=== PATIENT | male | born 1965 | race Caucasian/White ===

== ENCOUNTER 2019-01-11 07:42 | Inpatient (IN) | payer OTHER ==
[~2019-01-11] VITALS: Ht 180.3 cm; Wt 121.2 kg
[2019-01-11 08:40] VITALS: BP 132/96
[2019-01-11] MEDS ORDERED: HEPARIN for IV BOLUS 10,000 UNIT/10 ML VIAL. IV PRN (10:00)
[2019-01-11] MEDS: HEPARIN 25,000UTS/500ML PREMIX 500 ML IV PRN (10:41)
[2019-01-11 11:00] VITALS: BP 123/63
[2019-01-11 15:00] VITALS: BP 114/71
[2019-01-11] MEDS ORDERED: FLU VAX QS 2019-20 (36MOS+)/PF 0.5 ML SYRINGE. VAX IM ONE (18:00)
[2019-01-11] MEDS ORDERED: DEXTROSE 50% 25 GM / 50ML DISP.SYRIN. IV PRN (19:15)
[2019-01-11 19:45] VITALS: BP 144/86
[2019-01-11] MEDS: LISINOPRIL 20 MG TABLET PO SCH (21:15)
[2019-01-11] MEDS: ASPIRIN ENTERIC COATED 325 MG TABLET.DR. PO SCH (21:15)
[2019-01-11] MEDS: CARVEDILOL 3.125 MG TABLET. PO SCH (21:15)
[2019-01-11 23:15] VITALS: BP 100/47
[2019-01-12 03:00] VITALS: BP 94/45
[2019-01-12] MEDS: HEPARIN 25,000UTS/500ML PREMIX 500 ML IV PRN ×2 (04:54→19:38)
[2019-01-12 07:00] VITALS: BP 134/78
[2019-01-12 07:15] LABS: HEMATOCRIT 42.4 % (39.0-53.0); HEMOGLOBIN 14.7 g/dL (13.0-17.5); RED BLOOD COUNT 4.74 x10^6/uL (4.30-5.70); RED CELL DISTRIBUTION WIDTH 13.4 % (11.5-14.5); WHITE BLOOD COUNT 7.5 x10^3/uL (4.0-11.0)
[2019-01-12] MEDS ORDERED: metFORMIN 500 MG TABLET PO SCH (08:00)
[2019-01-12] MEDS: INSULIN LISPRO 300 UNITS/3 ML VIAL. SQ SCH ×3 (08:00→17:00)
[2019-01-12] MEDS: CARVEDILOL 3.125 MG TABLET. PO SCH ×2 (08:16→17:47)
[2019-01-12] MEDS ORDERED: ANTI-COAG MONITOR BY PHARMACY. MC PRN (08:30)
--- NOTE | 2019-01-12 08:43 | PN ---
DATE: 01/12/2019 SUBJECTIVE: The patient is resting, slightly propped up in bed, in no apparent distress. On questioning him, he denied any further episodes of chest pain. PHYSICAL EXAMINATION: GENERAL: When I examined him, he looked well and was clearly in no apparent respiratory distress. No pallor, jaundice, cyanosis or thyromegaly. No jugular venous distention. No lower limb edema. VITAL SIGNS: His heart rate was 57, blood pressure was 194/45, temperature was 97.7, respiratory rate was 17 and oxygen saturation was 96%. HEAD, EYES, EARS, NOSE AND THROAT: Showed normocephalic, atraumatic. NECK: Supple. HEART: Showed normal first and second heart sounds. No gallop or murmur. CHEST: Clear to auscultation. No crepitation or rhonchi. ABDOMEN: Distended, soft, nontender. NEUROLOGIC: He was awake, alert, responding appropriately. All cranial nerves intact. He moves extremities without difficulty. LABORATORY DATA: As of this morning showed a white cell count 7500, hemoglobin 14.7, hematocrit 42, MCV 90 and platelet count 223,000. His blood sugar is within acceptable range. ASSESSMENT: This is a 53-year-old male patient who came in with chest pain and elevated troponin without EKG changes of ST segment elevation. He is here as a transfer from [facility] and was started on heparin drip in preparation for his cardiac catheterization. Has multiple risk factors for coronary artery disease including hypertension, type 2 diabetes. He has also very strong family history of premature coronary artery disease. We will continue to monitor his blood sugar. Continue with his all other medications. We will also check his fasting lipid profile. SHAWNA MURRAY MD DR: DAISY/lilo JOB#: [id number] / [id number]
--- NOTE | 2019-01-12 09:09 | HP ---
ADMIT DATE: 01/11/2019 HISTORY OF PRESENT ILLNESS: The patient is a 53-year-old male patient who presented to the Emergency Room of [facility] with chest pain, intermittent, has been going on for the last one week. He apparently has had a stress test 2 years ago, reported to be clear. He has had a heart catheterization in 2003. It was also unremarkable. 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 Denied any nausea or vomiting. Apparently, the day before admission, he was working in the backyard and developed chest pain and pain radiating to his left shoulder and left arm, under his chin and therefore, he decided to come to the Emergency Room where he was evaluated. His initial troponin was 0.049 and apparently has 2 more sets of cardiac enzymes that has risen slightly further to 0.185 and 0.417 and therefore, the patient was transferred to [facility] in consultation with Dr. Bonilla with a plan to do a cardiac catheterization. PAST MEDICAL HISTORY: Significant for type 2 diabetes, hypertension. PAST SURGICAL HISTORY: Significant for cardiac catheterization in 2003 and has not had any other operation. FAMILY HISTORY: Significant for very strong family history of premature coronary artery disease. His father had his first heart attack in the early 50s and younger brother has stroke in his 30s, 2 of his uncles in their 40s because of heart attack. His mother also had heart attack in her 70s. SOCIAL HISTORY: He is , has 1 daughter. He does not smoke, drinks alcohol occasionally and has used marijuana about 3 weeks ago. 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 PHYSICAL EXAMINATION: GENERAL: On arrival to [facility], he looked well and was clearly in no apparent respiratory distress, pale, but no jaundice, cyanosis or thyromegaly. No jugular venous distension. No lower limb edema. VITAL SIGNS: His heart rate was 62, blood pressure was 144/86, temperature was 97.3, respiratory rate was 22 and oxygen saturation was 97%. HEAD, EYES, EARS, NOSE AND THROAT: Normocephalic, atraumatic. NECK: Supple. HEART: Showed normal first and second heart sounds. No gallop or murmur. CHEST: Clear to auscultation. No crepitation or rhonchi. ABDOMEN: Distended, soft, nontender. No guarding or rigidity. No organomegaly. All hernial orifices are intact. Bowel sounds normal. NEUROLOGIC: He was awake, alert, responding appropriately. All cranial nerves intact. EXTREMITIES: He moves extremities without difficulty. He ambulates without assistance or assistive devices. LABORATORY DATA: Showed a white cell count 7500, hemoglobin 14.7, hematocrit 42, MCV 90 and platelet count 223,000. His chemistry showed that his serum sodium was 140, potassium 4.1, chloride 107, bicarbonate 24, anion gap of 11, BUN 21, creatinine 1.5, estimated GFR was 49 mL per minute. His glucose was 104, calcium was 9. Total bilirubin, AST, ALT, alkaline phosphatase were normal. Total protein was 7.5, albumin 3.6. His prothrombin time was 10, INR 1, aPTT was 25. ASSESSMENT AND PLAN: The patient was basically admitted as a transfer from [facility] with probably non-ST segment elevation myocardial infarction. The patient has multiple risk factors for coronary artery disease including hypertension, hyperlipidemia and a very strong family history of coronary artery disease. The patient was started on heparin drip and was continued on all his other medications including aspirin, lisinopril 20 mg once a day, carvedilol 3.125 mg twice a day and his metformin was held with a plan to do cardiac catheterization. SHAWNA MURRAY MD DR: DAISY/lilo JOB#: [id number] / [id number]
[2019-01-12 11:00] VITALS: BP 108/78
--- NOTE | 2019-01-12 14:53 | PDOC2 ---
CONSULT Date of Consult Date of Consult DATE: 01/12/19 TIME: 14:47 Reason for Consult Reason for Consult: Chest pain Referring Physician Referring Physician: Dr. Steele Identification/Chief Complaint Chief Complaint Chest pain Source Source: Chart review, Patient History of Present Illness Reason for Visit: The patient is a 53-year-old male who was admitted to [facility] for several episodes of increasing chest discomfort. This discomfort usually occurred with exertion. He was initially admitted and treated for monitoring. His troponin peaked at 0.417. A CT scan was negative for PE but positive for coronary calcifications. He has a personal history of diabetes mellitus and hypertension. He also has a very strong family history of early coronary artery disease. Following the troponin level he was started on heparin. He has then been transferred to [facility] for cardiac catheterization. Past Medical History Cardiovascular: HTN Endocrine: Diabetes Past Surgical History Past Surgical History: No pertinent history Family History Family History: Coronary Artery Disease Social History No ALCOHOL: none Current Medications Current Medications Current Medications Heparin Sodium/ Dextrose 500 ml @ 20 mls/hr CONT PRN IV PER PROTOCOL Last administered on 01/12/19at 04:54; Start 01/11/19 at 10:00 Heparin Sodium (Porcine) (Heparin Sodium) 3,100 unit PRN Q6HRS PRN IV FOR UFH LEVEL LESS THAN 0.2; Start 01/11/19 at 10:00 Influenza Virus Vaccine Quadrival (Afluria Quad 2019-20 (3yr Up) Syringe) 0.5 ml ONCE ONCE VAX IM ; Start 01/11/19 at 18:00; Stop 01/11/19 at 18:01; Status DC Carvedilol (Coreg) 3.125 mg BIDWMEALS PO Last administered on 01/12/19at 08:16; Start 01/11/19 at 21:00 Lisinopril (Prinivil) 20 mg QHS PO Last administered on 01/11/19at 21:15; Start 01/11/19 at 21:00 Metformin HCl (Glucophage) 1,000 mg BIDWMEALS PO ; Start 01/12/19 at 08:00; Status Hold Aspirin (Ecotrin) 325 mg QHS PO Last administered on 01/11/19at 21:15; Start 01/11/19 at 21:00 Insulin Human Lispro (HumaLOG) 0-5 UNITS TIDWMEALS SQ ; Start 01/12/19 at 08:00 Dextrose (Dextrose 50%-Water Syringe) 12.5 gm PRN Q15MIN PRN IV SEE COMMENTS; Start 01/11/19 at 19:15 Info (Anti-Coagulation Monitoring By Pharmacy) 1 each PRN DAILY PRN MC SEE CO MMENTS Last administered on 01/12/19at 08:21; Start 01/12/19 at 08:30 Allergies Allergies: Coded Allergies: No Known Drug Allergies (Unverified , 01/11/19) ROS Respiratory: YES: SOB with excertion Cardiovascular: yes Chest Pain Physical Exam General: No acute distress HEENT: Atraumatic Lungs: Clear to auscultation Heart: Regular rate Abdomen: Normal bowel sounds Vitals VITALS Vital Signs Date Time Temp Pulse Resp B/P (MAP) Pulse Ox O2 Delivery O2 Flow Rate FiO2 01/12/19 11:00 97.7 62 16 108/78 (88) 94 Room Air 97.7 Labs Labs Laboratory Tests Test 01/11/19 12:23 01/11/19 16:48 01/11/19 17:26 01/11/19 20:43 Glucose (Fingerstick) 144 mg/dL (70-99) 132 mg/dL (70-99) 114 mg/dL (70-99) Heparin Anti-Xa Act, Unfractionated < 0.10 IU/mL (0.30-0.70) Test 01/12/19 01:00 01/12/19 07:05 01/12/19 07:50 01/12/19 12:30 Heparin Anti-Xa Act, Unfractionated 0.28 IU/mL (0.30-0.70) 0.37 IU/mL (0.30-0.70) White Blood Count 7.5 x10^3/uL (4.0-11.0) Red Blood Count 4.74 x10^6/uL (4.30-5.70) Hemoglobin 14.7 g/dL (13.0-17.5) Hematocrit 42.4 % (39.0-53.0) Mean Corpuscular Volume 90 fL (79-100) Mean Corpuscular Hemoglobin 31 pg (25-35) Mean Corpuscular Hemoglobin Concent 35 g/dL (31-37) Red Cell Distribution Width 13.4 % (11.5-14.5) Platelet Count 223 x10^3/uL (140-400) Glucose (Fingerstick) 111 mg/dL (70-99) 93 mg/dL (70-99) Test 01/12/19 12:54 Heparin Anti-Xa Act, Unfractionated 0.37 IU/mL (0.30-0.70) Laboratory Tests Test 01/11/19 16:48 01/11/19 17:26 01/11/19 20:43 01/12/19 01:00 Heparin Anti-Xa Act, Unfractionated < 0.10 IU/mL (0.30-0.70) 0.28 IU/mL (0.30-0.70) Glucose (Fingerstick) 132 mg/dL (70-99) 114 mg/dL (70-99) Test 01/12/19 07:05 01/12/19 07:50 01/12/19 12:30 01/12/19 12:54 White Blood Count 7.5 x10^3/uL (4.0-11.0) Red Blood Count 4.74 x10^6/uL (4.30-5.70) Hemoglobin 14.7 g/dL (13.0-17.5) Hematocrit 42.4 % (39.0-53.0) Mean Corpuscular Volume 90 fL (79-100) Mean Corpuscular Hemoglobin 31 pg (25-35) Mean Corpuscular Hemoglobin Concent 35 g/dL (31-37) Red Cell Distribution Width 13.4 % (11.5-14.5) Platelet Count 223 x10^3/uL (140-400) Heparin Anti-Xa Act, Unfractionated 0.37 IU/mL (0.30-0.70) 0.37 IU/mL (0.30-0.70) Glucose (Fingerstick) 111 mg/dL (70-99) 93 mg/dL (70-99) Images Images CT chest with no PE. Positive for coronary calcifications. Assessment/Plan Assessment/Plan 1. Chest pain. Patient is pain-free on heparin. Peak troponin of 0.417. No acute ischemic EKG changes. However the patient has a concerning story for recurrent chest pain. He does have diabetes as well as hypertension. Very strong family history of early coronary disease. Recurrent episodes of chest pain. In this setting I believe cardiac catheterization is appropriate. Options were discussed with the patient. Risks and benefits of cardiac catheterization were discussed with the patient. He has consented to proceed with catheterization tomorrow. 2. Diabetes mellitus. Holding metformin prior to catheterization. Monitoring lab. 3. Hypertension. We'll continue present treatments and monitor. Thank you for allowing us to participate in the care of your patient. THAIS VILLAREAL MD Jan 12, 2019 14:53
[2019-01-12 15:00] VITALS: BP 139/99
[2019-01-12 19:30] VITALS: BP 153/89
[2019-01-12] MEDS: LISINOPRIL 20 MG TABLET PO SCH (21:00)
[2019-01-12] MEDS: ASPIRIN ENTERIC COATED 325 MG TABLET.DR. PO SCH (21:00)
[2019-01-12 23:15] VITALS: BP 140/80
[2019-01-13] VITALS (15 sets, daily range): BP systolic 119–177; BP diastolic 58–96
[2019-01-13 05:42] LABS: ALBUMIN 3.1 g/dL (3.4-5.0); ALBUMIN/GLOBULIN RATIO 0.8 (1.0-1.7); CALCIUM 8.9 mg/dL (8.5-10.1); CREATININE 1.3 mg/dL (0.7-1.3); GFR 57.7; POTASSIUM 4.1 mmol/L (3.5-5.1); TOTAL BILIRUBIN 0.3 mg/dL (0.2-1.0); TOTAL PROTEIN 6.8 g/dL (6.4-8.2)
[2019-01-13 05:47] LABS: CHOLESTEROL/HDL RATIO 5.7
[2019-01-13 06:14] LABS: PROTHROMBIN TIME PATIENT 13.6 SEC (11.7-14.0)
[2019-01-13 06:15] LABS: UNFRACTIONATED HEPARIN TESTING 0.38 IU/mL (0.30-0.70)
[2019-01-13] MEDS: INSULIN LISPRO 300 UNITS/3 ML VIAL. SQ SCH ×3 (08:00→17:00)
[2019-01-13] MEDS: CARVEDILOL 3.125 MG TABLET. PO SCH ×2 (08:01→17:37)
[2019-01-13] MEDS: IV NORMAL SALINE 1000ML BAG 1,000 ML IV SCH ×2 (08:38→18:50)
--- NOTE | 2019-01-13 09:53 | PN ---
DATE: 01/13/2019 SUBJECTIVE: The patient is resting, slightly propped up in bed, no apparent distress, and awake, alert. He did have an episode of facial flushing with some tingling around his mouth that has resolved, happened when he was having bowel movement. Other than that, he has had no further episode of shortness of breath, no chest pain, and has generally uneventful night. OBJECTIVE: GENERAL: When I examined him this morning, he looked well and was clearly in no apparent respiratory distress. No pallor, jaundice, cyanosis, or thyromegaly. No jugular venous distension. No lower limb edema. VITAL SIGNS: His heart rate was 61, blood pressure was 126/69, temperature was 97.7, respiratory rate was 18, and oxygen saturation was 95%. The rest of clinical exam is stable, has not really changed. LABORATORY DATA: His lab work this morning showed a serum sodium 141, potassium 4.1, chloride 106, bicarbonate 26, anion gap of 9, BUN 13, creatinine 1.3, estimated GFR was 58 mL per minute. His glucose was 117, calcium was 8.9. Total bilirubin, AST, ALT, alkaline phosphatase were normal. Total protein is 6.8, albumin 3.1. His serum triglycerides 261, total cholesterol 176, LDL was 93, VLDL was 52, HDL was 31 and ratio 5.7. His heparin anti-Xa unfractionated was 0.038. ASSESSMENT: 1. Chest pain. Peak troponin is 0.417. No acute ischemic EKG changes. However, the patient has a concerning history of recurrent chest pain. He is diabetic, has hypertension, very strong family history of coronary artery disease. 2. Type 2 diabetes mellitus. 3. Hypertension. PLAN: For him to undergo cardiac catheterization and revascularization if deemed necessary. SHAWNA MURRAY MD DR: DAISY/lilo JOB#: [id number] / [id number]
[2019-01-13] MEDS ORDERED: IODIXANOL 320 MG/ML 100 ML VIAL. ONE ×2 (11:07→12:28)
[2019-01-13] MEDS ORDERED: LIDOCAINE 1% Multi-Dose 20 ML VIAL. ONE (11:23)
[2019-01-13] MEDS ORDERED: MIDAZOLAM HCL/PF 5 MG/5 ML VIAL. ONE (11:36)
[2019-01-13] MEDS ORDERED: fentaNYL PF VIAL 250 MCG/5 ML VIAL ONE (11:36)
--- NOTE | 2019-01-13 11:40 | PDOC ---
MODERATE SEDATION ASSESSMENT RISKS/ALTERNATIVES Risks/Alternatives Risks and alternatives of this type of sedation and procedure discussed with: RISK/ALTERNATIVES: Patient H & P ON CHART H & P H & P on chart and reviewed for co-morbid conditions and appropriate labs. H&P ON CHART: Yes STATUS PREG STATUS ASSESSED: N/A MEDS/ALLERGIES REVIEWED Meds/Allergies Reviewed Medications and Allergies including time and route of recently administered narcotics and sedatives. MEDS/ALLERGIES REVIEWED: Yes ASA RATING ASA RATING: II AIRWAY ASSESSMENT Airway Assessment Airway patency, oral function limitations, presence of caps, crowns, dentures, partials, and ability to extend neck assessed. AIRWAY ASSESSMENT: Yes MALLAMPATI SCORE MALLAMPATI SCORE: II PRE-SEDATION ASSESSMENT PRE-SEDATION ASSESSMENT: Yes THAIS VILLAREAL MD Jan 13, 2019 11:40
--- NOTE | 2019-01-13 11:50 | NUR ---
patient left the floor for the laboratory clerk at approx 1140,. with the pt at the time.
[2019-01-13] MEDS ORDERED: VERAPAMIL 5 MG/2 ML VIAL. ONE ×2 (11:58→12:41)
[2019-01-13] MEDS ORDERED: HEPARIN for IV BOLUS 10,000 UNIT/10 ML VIAL. ONE (11:58)
[2019-01-13] MEDS ORDERED: NITROGLYCERIN 200 MCG/2 ML SYRINGE FOR CATH/VASC LAB. ONE ×2 (11:58→13:08)
[2019-01-13] MEDS ORDERED: NITROGLYCERIN PREMIX 250 ML IV ONE (12:37)
[2019-01-13] MEDS ORDERED: BIVALIRUDIN 250 MG VIAL. IV ONE ×2 (12:41→13:00)
[2019-01-13] MEDS ORDERED: TICAGRELOR 90 MG TABLET. PO ONE (13:00)
[2019-01-13] MEDS ORDERED: HEPARIN for IV BOLUS 10,000 UNIT/10 ML VIAL. IART ONE (13:00)
[2019-01-13] MEDS ORDERED: NITROGLYCERIN 200 MCG/2 ML SYRINGE FOR CATH/VASC LAB. IART ONE (13:00)
[2019-01-13] MEDS ORDERED: MIDAZOLAM HCL/PF 5 MG/5 ML VIAL. IV ONE (13:00)
[2019-01-13] MEDS ORDERED: LIDOCAINE 1% Multi-Dose 20 ML VIAL. INJ ONE (13:00)
[2019-01-13] MEDS ORDERED: VERAPAMIL 5 MG/2 ML VIAL. IART ONE (13:00)
[2019-01-13] MEDS ORDERED: IODIXANOL 320 MG/ML 100 ML VIAL. IART ONE (13:00)
[2019-01-13] MEDS ORDERED: fentaNYL PF VIAL 250 MCG/5 ML VIAL IV ONE (13:00)
[2019-01-13] MEDS ORDERED: CONTRAST GIVEN. MC PRN (13:15)
--- NOTE | 2019-01-13 13:26 | NUR ---
SS following for discharge planning. SS reviewed pt chart. Pt is from home with spouse and is currently on room air. No discharge needs noted at this time. SS will continue to follow for discharge planning.
--- NOTE | 2019-01-13 13:32 | NUR ---
Pt returned from the finishing lab technician at approx 1330.
--- NOTE | 2019-01-13 18:07 | NUR ---
Pt has had no complaints upon returning from heart cath. Handouts given frequents taken . All extremities warm with good circulation. All air removed from the tr band and band removed an hour later no bleeding at site. pt was off heparin drip at the time he went down for the procedure and came back on normal saline. Pt up in bed at this time eating dinner will continue to monitor and pass report to piecer.
[2019-01-13] MEDS: ASPIRIN ENTERIC COATED 325 MG TABLET.DR. PO SCH (20:41)
[2019-01-13] MEDS: LISINOPRIL 20 MG TABLET PO SCH (20:41)
[2019-01-13] MEDS ORDERED: LABETALOL 20 MG/4 ML DISP.SYRIN. IVP PRN (23:30)
[2019-01-13] MEDS ORDERED: hydrALAZINE 20 MG/ML VIAL. IVP ONE (23:45)
[2019-01-14 00:51] VITALS: BP 146/75
[2019-01-14 03:30] VITALS: BP 148/92
[2019-01-14] MEDS: IV NORMAL SALINE 1000ML BAG 1,000 ML IV SCH (04:00)
[2019-01-14 04:33] LABS: HEMATOCRIT 44.5 % (39.0-53.0); HEMOGLOBIN 15.6 g/dL (13.0-17.5); RED BLOOD COUNT 5.01 x10^6/uL (4.30-5.70); RED CELL DISTRIBUTION WIDTH 13.2 % (11.5-14.5); WHITE BLOOD COUNT 9.3 x10^3/uL (4.0-11.0)
[2019-01-14 07:00] VITALS: BP 146/76
[2019-01-14] MEDS: INSULIN LISPRO 300 UNITS/3 ML VIAL. SQ SCH (08:00)
[2019-01-14 08:34] VITALS: BP 146/76
[2019-01-14] MEDS: CARVEDILOL 3.125 MG TABLET. PO SCH (08:34)
--- NOTE | 2019-01-14 09:20 | CARD ---
MR#: [id number] Date of Study: 01/13/2019 Ordering Physician: NING ALLEN, Referring Physician: NING ALLEN Tech: RT Kathleen (R) APPROVED REPORT Technologist: RT Kathleen (R) Nurse: Josette Dominguez R.N. Procedure(s) performed: Successful PCI/drug eluting stents placement to the left circumflex artery an d diagonal branch of left anterior descending artery Fluoro time: 17.5min Dose: 166 Gycm2 Contrast: 183cc Moderate sedation: 97 minutes INDICATION The indication(s) include : 53-year-old male who presented with acute non-STEMI was found to have sig nificant stenoses involving his left circumflex artery and the diagonal branch of left anterior desce nding artery on diagnostic coronary angiography performed earlier. He was referred to [facility] for PCI/sten t placement.. [facility] Clinical Frailty Scale [facility] Clinical Frailty Scale: Well Heart Failure Heart Failure: No PROCEDURE NARRATIVE An informed consent was obtained prior to diagnostic coronary angiography performed earlier. A 6 Fren ch XP 3.5 guide catheter was advanced through the sheath placed in the right radial artery for aguilera ry angiography and the left main coronary artery was engaged. Angiography confirmed the previously de scribed 95% stenosis involving the left circumflex artery and 90% stenosis involving the ostium/proxi mal segment of the diagonal branch of left anterior descending artery. The stenosis in the left circumflex artery was crossed with a 0.014 inch [employer] Pro water guidewire. T his was predilated with a 2.5 x 12 mm trek balloon following which this was successfully treated with a 3.0 x 18 mm Xience Alpine drug-eluting stent. Subsequently, the stenosis in the ostial/proximal se gment of the diagonal branch was crossed with the same guidewire, predilated with the 2.5 x 12 mm brenda k balloon and treated successfully with a 2.5 x 12 mm Xience Alpine drug-eluting stent. Follow-up ang iography showed resolution of both the lesions to 0% with JOELLEN-3 distal flow. Patient tolerated the p rocedure well. Hemostasis was achieved using TR band. There were no immediate complications. PCI Technique Lesion Percutaneous coronary intervention was performed on the mid circumflex artery segment. JOELLEN Flow JOELLEN Flow (Pre-Intervention): JOELLEN-3 JOELLEN Flow (Post-Intervention): JOELLEN-3 PCI Technique Lesion 2 Percutaneous Coronary Intervention was performed on the first diagonal branch segment. JOELLEN Flow JOELLEN Flow (Pre-Intervention): JOELLEN-2 JOELLEN Flow (Post-Intervention): JOELLEN-3 Conclusion 1. Severe two-vessel coronary disease 2. Successful PCI/AXEL to left circumflex artery and diagonal branch of left anterior descending dale ry. Recommendations 1. Aspirin 81 mg daily 2. Ticagrelor 90 mg twice a day for preferably one year 3. Cardiovascular risk factor modification 4. Consider initiation of Jardiance for his diabetes. Signed by : Ning Allen, Electronically Approved : 01/13/2019 15:17:09
--- NOTE | 2019-01-14 09:20 | CARD ---
MR#: [id number] Date of Study: 01/13/2019 Ordering Physician: THAIS HAND, Referring Physician: THAIS HAND, Tech: Vickie Baeza RT (R) APPROVED REPORT Procedures Selective coronary angiogram The patient is a 53-year-old male was admitted with chest discomfort. He had minimally elevated tropo dae of less than 1.0. He however did have a history of recurrent episodes of chest pain. He has risk factors of diabetes, hypertension and a family history of early coronary disease. In this setting car diac catheterization was recommended. Risks and benefits were discussed. The patient agreed to procee d. After informed consent was obtained the patient was brought to the catheterization lab. The area of t he right radial artery was apparent in the usual manner with Betadine, sterile draping and local anes thetic after an acceptable Pacheco's test. A quick catheter device was used to engage the right radial artery, a wire placed and a 6 Setswana sheath placed over the wire. The standard mixture of heparin and antispasm medications was administered through the sheath. With the assistance of a J-wire, a JL 3.5 diagnostic catheter was advanced to the ascending aorta. This catheter was not able to engage the le ft system. It was removed with an eqlf-nwd-cijf technique and a 6 Setswana Man right diagnostic ca theter was advanced to the ascending aorta. It was then used to engage the right coronary artery and sequential injections in various views were obtained. Again with an rnvj-fco-dibq technique a 6 Frenc h JL4 diagnostic catheter was advanced to the ascending aorta. With some difficulty was used to engag e the left system. Sequential injections in various views were obtained. Review of the images showed significant disease in the left circumflex and the first diagonal branch of the LAD. The catheter was removed from the patient. After discussion with the patient and review the images further interventi on will be performed by Dr. Shaikh. Findings. Hemodynamics. Aortic root pressure of 118/80. Coronaries. Left main. The left main was normal size vessel with no lesions. Left anterior descending. The LAD was a moderate size vessel with normal distribution. It had a mid 2 0-25% lesion. The first diagonal had an ostial lesion of greater than 90%. Left circumflex. The left circumflex was a moderate size vessel. It had a mid greater than 95% lesion . Right coronary artery. The right coronary was a large dominant vessel. It had a proximal to ostial 20 -25% lesion. <Conclusion> Significant 2 vessel coronary artery disease in the left circumflex and first diagonal branch. Signed by : Thais Hand MD Electronically Approved : 01/13/2019 17:35:15
--- NOTE | 2019-01-14 09:58 | PDOC ---
CARDIO Progress Notes Date and Time Date of Service 01/14/2019 Time of Evaluation 0940 Subjective Subjective: No Chest Pain, No shortness of breath, No Palpitations Vitals Vitals Vital Signs Date Time Temp Pulse Resp B/P (MAP) Pulse Ox O2 Delivery O2 Flow Rate FiO2 01/14/19 08:34 96 146/76 01/14/19 08:00 Room Air 01/14/19 07:00 98.2 18 98 98.2 01/13/19 13:45 2.0 Weight Weight [ ] Input and Output Intake and Output Intake and Output 01/14/19 06:59 Intake Total 1800 ml Output Total 625 ml Balance 1175 ml Intake Oral 800 ml IV Total 1000 ml Output Urine Total 625 ml # Voids 4 # Bowel Movements 1 Laboratory Labs Laboratory Tests Test 01/13/19 17:27 01/13/19 21:05 01/14/19 04:05 01/14/19 07:36 Glucose (Fingerstick) 137 mg/dL (70-99) 120 mg/dL (70-99) 128 mg/dL (70-99) White Blood Count 9.3 x10^3/uL (4.0-11.0) Red Blood Count 5.01 x10^6/uL (4.30-5.70) Hemoglobin 15.6 g/dL (13.0-17.5) Hematocrit 44.5 % (39.0-53.0) Mean Corpuscular Volume 89 fL (79-100) Mean Corpuscular Hemoglobin 31 pg (25-35) Mean Corpuscular Hemoglobin Concent 35 g/dL (31-37) Red Cell Distribution Width 13.2 % (11.5-14.5) Platelet Count 244 x10^3/uL (140-400) Physical Exam HEENT: Neck Supple W Full Motion Chest: Symmetric LUNGS: Clear to Auscultation Heart: S1S2, RRR (SR) Abdomen: Soft N/T Extremities: No Calf Tenderness Neurology: alert, oriented, follow commands Assessment Assessment 1. Unstable angina: S/P PCI/AXEL to LCx and D1 2. DM2 3. HTN: controlled 4. HLP 5. Obesity 6. Hydralazine allergy: new 7. PSVT Recommendations 1. Consider jardiance. May resume metformin tomorrow. 2. ECASA 81 mg daily. Brilinta for at least a yr 3. Cardiac rehab 4. Continue coreg and lisinopril for BP control. Statin. 5. Dietitian consult. Wt loss. 6. 2 wk event monitor MAXWELL VICENTE APRN Jan 14, 2019 09:58
--- NOTE | 2019-01-14 10:06 | PDOC ---
PROGRESS NOTES Subjective Subjective feels better today Objective Objective Vital Signs Date Time Temp Pulse Resp B/P (MAP) Pulse Ox O2 Delivery O2 Flow Rate FiO2 01/14/19 08:34 96 146/76 01/14/19 08:00 Room Air 01/14/19 07:00 98.2 18 98 98.2 01/13/19 13:45 2.0 Intake and Output 01/14/19 07:00 Intake Total 1800 ml Output Total 625 ml Balance 1175 ml Intake Oral 800 ml IV Total 1000 ml Output Urine Total 625 ml # Voids 4 # Bowel Movements 1 Physical Exam Abdomen: Normal bowel sounds Heart: Regular rate General: No acute distress HEENT: Atraumatic Lungs: Clear to auscultation MUSCULOSKELETAL: No deformity Neck: No JVD Neuro: Normal speech Skin: No breakdown Assessment Assessment Assessment 1. Unstable angina: S/P PCI/AXEL to LCx and D1 2. DM2 3. HTN: controlled 4. HLP 5. Obesity 6. Hydralazine allergy: new 7. PSVT Recommendations: d/c home today 1. Consider jardiance. May resume metformin tomorrow. 2. ECASA 81 mg daily. Brilinta for at least a 1 yr 3. Cardiac rehab 4. Continue coreg and lisinopril for BP control. Statin. 5. Dietitian consult. Wt loss. 6. 2 wk event monitor Comment Review of Relevant I have reviewed the following items tor (where applicable) has been applied. Labs Laboratory Tests Test 01/13/19 17:27 01/13/19 21:05 01/14/19 04:05 01/14/19 07:36 Glucose (Fingerstick) 137 mg/dL (70-99) 120 mg/dL (70-99) 128 mg/dL (70-99) White Blood Count 9.3 x10^3/uL (4.0-11.0) Red Blood Count 5.01 x10^6/uL (4.30-5.70) Hemoglobin 15.6 g/dL (13.0-17.5) Hematocrit 44.5 % (39.0-53.0) Mean Corpuscular Volume 89 fL (79-100) Mean Corpuscular Hemoglobin 31 pg (25-35) Mean Corpuscular Hemoglobin Concent 35 g/dL (31-37) Red Cell Distribution Width 13.2 % (11.5-14.5) Platelet Count 244 x10^3/uL (140-400) Medications Current Medications Atorvastatin Calcium (Lipitor) 40 mg QHS PO ; Start 01/14/19 at 21:00 Bivalirudin (Angiomax) 250 mg 1X ONCE IV Last administered on 01/13/19at 13:13; Start 01/13/19 at 13:00; Stop 01/13/19 at 13:10; Status DC Bivalirudin (Angiomax) 250 mg STK-MED ONCE IV ; Start 01/13/19 at 12:41; Stop 01/13/19 at 12:41; Status DC Fentanyl Citrate (Fentanyl 5ml Vial) 100 mcg 1X ONCE IV Last administered on 01/13/19at 13:15; Start 01/13/19 at 13:00; Stop 01/13/19 at 13:10; Status DC Fentanyl Citrate (Fentanyl 5ml Vial) 250 mcg STK-MED ONCE .ROUTE ; Start 01/13/19 at 11:36; Stop 01/13/19 at 11:36; Status DC Heparin Sodium (Porcine) (Heparin Sodium) 2,500 unit 1X ONCE IART Last administered on 01/13/19at 13:16; Start 01/13/19 at 13:00; Stop 01/13/19 at 13:10; Status DC Heparin Sodium (Porcine) (Heparin Sodium) 10,000 unit STK-MED ONCE .ROUTE ; Start 01/13/19 at 11:58; Stop 01/13/19 at 11:58; Status DC Heparin Sodium/ Sodium Chloride 1,000 ml @ As Directed STK-MED ONCE .ROUTE ; Start 01/13/19 at 11:23; Stop 01/13/19 at 11:23; Status DC Heparin Sodium/ Sodium Chloride (HEPARIN for ARTERIAL LINE FLUSH) 1,000 unit 1X ONCE IART Last administered on 01/13/19at 13:16; Start 01/13/19 at 13:00; Stop 01/13/19 at 13:10; Status DC Heparin Sodium/ Sodium Chloride (HEPARIN for ARTERIAL LINE FLUSH) 1,000 unit 1X ONCE IART Last administered on 01/13/19at 13:16; Start 01/13/19 at 13:00; Stop 01/13/19 at 13:10; Status DC Hydralazine HCl (Apresoline Inj) 10 mg 1X ONCE IVP Last administered on 01/14/19at 00:02; Start 01/13/19 at 23:45; Stop 01/13/19 at 23:46; Status DC Info (CONTRAST GIVEN -- Rx MONITORING) 1 each PRN DAILY PRN MC SEE COMMENTS; Start 01/13/19 at 13:15; Stop 01/15/19 at 13:14 Iodixanol (Visipaque 320) 100 ml STK-MED ONCE .ROUTE ; Start 01/13/19 at 11:07; Stop 01/13/19 at 11:08; Status DC Iodixanol (Visipaque 320) 100 ml STK-MED ONCE .ROUTE ; Start 01/13/19 at 12:28; Stop 01/13/19 at 12:28; Status DC Iodixanol (Visipaque 320) 187 ml 1X ONCE IART Last administered on 01/13/19at 13:16; Start 01/13/19 at 13:00; Stop 01/13/19 at 13:10; Status DC Labetalol HCl (Normodyne Iv Push) 20 mg PRN Q3HRS PRN IVP HYPERTENSION; Start 01/13/19 at 23:30 Lidocaine HCl (Lidocaine 1% 20ml Vial) 1 ml 1X ONCE INJ Last administered on 01/13/19at 13:13; Start 01/13/19 at 13:00; Stop 01/13/19 at 13:10; Status DC Lidocaine HCl (Lidocaine 1% 20ml Vial) 20 ml STK-MED ONCE .ROUTE ; Start 01/13/19 at 11:23; Stop 01/13/19 at 11:23; Status DC Midazolam HCl (Versed) 5 mg 1X ONCE IV Last administered on 01/13/19at 13:15; Start 01/13/19 at 13:00; Stop 01/13/19 at 13:10; Status DC Midazolam HCl (Versed) 5 mg STK-MED ONCE .ROUTE ; Start 01/13/19 at 11:36; Stop 01/13/19 at 11:36; Status DC Nitroglycerin (Nitroglycerin) 200 mcg STK-MED ONCE .ROUTE ; Start 01/13/19 at 11:58; Stop 01/13/19 at 11:58; Status DC Nitroglycerin (Nitroglycerin) 200 mcg STK-MED ONCE .ROUTE ; Start 01/13/19 at 13:08; Stop 01/13/19 at 13:09; Status DC Nitroglycerin (Nitroglycerin) 600 mcg 1X ONCE IART Last administered on 01/13/19at 13:13; Start 01/13/19 at 13:00; Stop 01/13/19 at 13:10; Status DC Nitroglycerin/ Dextrose 250 ml @ As Directed STK-MED ONCE IV ; Start 01/13/19 at 12:37; Stop 01/13/19 at 12:37; Status DC Ticagrelor (Brilinta) 180 mg 1X ONCE PO Last administered on 01/13/19at 13:16; Start 01/13/19 at 13:00; Stop 01/13/19 at 13:10; Status DC Verapamil HCl (Verapamil) 5 mg STK-MED ONCE .ROUTE ; Start 01/13/19 at 11:58; Stop 01/13/19 at 11:58; Status DC Verapamil HCl (Verapamil) 5 mg STK-MED ONCE .ROUTE ; Start 01/13/19 at 12:41; Stop 01/13/19 at 12:42; Status DC Verapamil HCl (Verapamil) 7.5 mg 1X ONCE IART Last administered on 01/13/19at 13:14; Start 01/13/19 at 13:00; Stop 01/13/19 at 13:10; Status DC Vitals/I & O Vital Sign - Last 24 Hours 01/13/19 01/13/19 01/13/19 01/13/19 11:00 13:14 13:15 13:24 Temp 98.1 98.1 Pulse 64 58 Resp 16 15 22 B/P (MAP) 119/58 (78) Pulse Ox 97 96 98 O2 Delivery Room Air Nasal Cannula Nasal Cannula O2 Flow Rate 2.0 2.0 01/13/19 01/13/19 01/13/19 01/13/19 13:30 13:45 13:45 14:00 B/P (MAP) 137/91 (106) 131/94 (106) 170/90 (116) Pulse Ox 98 O2 Delivery Room Air O2 Flow Rate 2.0 01/13/19 01/13/19 01/13/19 01/13/19 14:15 14:45 15:00 15:15 Temp 98.0 98.0 Pulse 66 62 70 58 Resp 16 B/P (MAP) 171/82 (111) 154/87 (109) 154/87 (109) 152/74 (100) Pulse Ox 97 O2 Delivery Nasal Cannula 01/13/19 01/13/19 01/13/19 01/13/19 16:15 17:37 19:50 20:00 Temp 98.2 98.2 Pulse 76 76 82 Resp 20 B/P (MAP) 177/96 (123) 176/96 166/80 (108) Pulse Ox 97 O2 Delivery Room Air Room Air 01/13/19 01/13/19 01/13/19 01/14/19 20:41 22:10 23:00 00:02 Temp 98.4 98.4 Pulse 82 88 83 87 Resp 18 B/P (MAP) 166/80 158/95 (116) 169/83 (111) 169/83 Pulse Ox 97 O2 Delivery Room Air 01/14/19 01/14/19 01/14/19 01/14/19 00:51 03:30 07:00 08:00 Temp 98.1 98.2 98.1 98.2 Pulse 90 87 93 Resp 18 18 B/P (MAP) 146/75 (98) 148/92 (110) 146/76 (99) Pulse Ox 98 98 O2 Delivery Room Air Room Air Room Air 01/14/19 08:34 Pulse 96 B/P (MAP) 146/76 Intake and Output 01/13/19 01/13/19 01/14/19 15:00 23:00 07:00 Intake Total 1000 ml 800 ml Output Total 225 ml 400 ml Balance -225 ml 600 ml 800 ml GEORGE CHAVEZ MD Jan 14, 2019 10:06
[2019-01-14] MEDS ORDERED: LISI-130 PO (10:14)
[2019-01-14] MEDS ORDERED: TICA90TA PO (10:14)
[2019-01-14] MEDS ORDERED: CARV3.1210 PO (10:14)
[2019-01-14] MEDS ORDERED: ATOR40TA59 PO (10:14)
[2019-01-14] MEDS ORDERED: METF500T PO (10:14)
[2019-01-14] MEDS ORDERED: ASPI81TA50 PO (10:14)
--- NOTE | 2019-01-14 10:34 | NUR ---
I discussed with the patient this AM about getting his flu shot. The patient declined the flu shot and stated, "I want to see if my back pain is related to my heart and because I feel like I have a cold. Also, the news says the flu shot is unsuccessful this year." Patient does exhibit respiratory mild cold symptoms and is A&Ox4 so I will hold off on giving the immunization. Patient stated he will follow up with his doctor in a few weeks to get the immunization.
--- NOTE | 2019-01-14 11:21 | NUR ---
Discharge Note: SHAWNA ALBRECHT [address] Discharge instructions and discharge home medications reviewed with Patient and a copy given. All questions have been answered and understanding verbalized. Extensive teaching done on CAD and medical management
[2019-01-14] MEDS ORDERED: ATORVASTATIN CALCIUM 40 MG TABLET. PO SCH (21:00)
--- NOTE | 2019-01-23 13:02 | DS ---
DATE OF DISCHARGE: 01/14/2019 HOSPITAL COURSE: The patient is a 53-year-old male patient who was admitted with recurrent episode of chest pain; and given that he has multiple risk factors for premature coronary artery disease, he was transferred from [facility] Emergency Room and was seen in consultation by the Cardiology team. His initial troponin was 0.049. Apparently, he has 2 more sets of cardiac enzymes that have risen slightly to 0.185 and 0.417, and therefore, he was transferred to [facility] in consultation with Dr. Bonilla with a plan for cardiac catheterization. He apparently underwent cardiac catheterization on 01/13/2019 and was found to have severe 2-vessel coronary artery disease and underwent successful PCI with drug-eluting stent deployment to the left circumflex artery and diagonal branch of the left anterior descending artery and was discharged to continue on aspirin 81 mg once a day, Brilinta 90 mg twice a day for preferably one year, together with basically cardiovascular risk factor modification and to consider initiation of Jardiance for his diabetes. On the day of discharge, he looked well and was clearly in no apparent respiratory distress. On questioning him, he denied any complaint; in particular, he denied any further episode of chest pain or shortness of breath. OBJECTIVE: GENERAL: When I examined him, he looked well and was clearly in no apparent respiratory distress. No pallor, jaundice, cyanosis, or thyromegaly. No jugular venous distention. No lower limb edema. VITAL SIGNS: His heart rate was 95, blood pressure was 146/76, temperature was 98.2, respiratory rate was 18, and oxygen saturation was 98%. HEENT: Examination of the head, eyes, ears, nose and throat showed normocephalic, atraumatic. NECK: Supple. HEART: Showed normal first and second heart sounds. No gallop, rub or murmur. CHEST: Clear to auscultation. No crepitation or rhonchi. ABDOMEN: Distended, soft and nontender. No guarding or rigidity. No organomegaly. All hernial orifices intact and bowel sounds normal. NEUROLOGIC: He was awake, alert, responding appropriately. All cranial nerves intact. He moves extremities without difficulty. LABORATORY DATA: His lab work showed a white cell count 9,300, hemoglobin 15.6, hematocrit 44.5, MCV 89 and platelet count 244,000. His chemistry showed a serum sodium 141, potassium 4.1, chloride 106, bicarbonate 26, anion gap of 9, BUN 13, creatinine 1.3, estimated GFR was 58 mL per minute. His glucose 117 and calcium was 8.9. Total bilirubin, AST, ALT and alkaline phosphatase were normal. Total protein was 6.8, albumin was 3.1. His serum triglycerides were 261, total cholesterol 176, LDL cholesterol was 93, VLDL was 52, HDL cholesterol was 31 and ratio was 5.7. His prothrombin time was 13.6, INR 1.1, aPTT was not done. DISCHARGE MEDICATIONS: He was discharged home to continue on aspirin 81 mg once a day, atorvastatin 40 mg at bedtime, carvedilol 3.125 mg twice a day, lisinopril 20 mg once a day, metformin 1000 mg twice a day, and Brilinta 90 mg twice a day. FINAL DISCHARGE DIAGNOSES: 1. Unstable angina, status post percutaneous coronary intervention with drug-eluting stent to his left circumflex and diagonal branch of left anterior descending. 2. Type 2 diabetes mellitus. 3. Hypertension. 4. Hyperlipidemia. 5. Obesity. 6. Paroxysmal supraventricular tachycardia. SHAWNA MURRAY MD DR: DAISY/lilo JOB#: [id number] / [id number]
== END 2019-01-14 12:00 | disposition home or self-care (01) | DRG 247 ==
LOC: 2 SOUTH 08:49
PROVIDERS: ADMIT Internal Medicine; ATTEND Internal Medicine
PROC: 027135Z Dilation of Coronary Artery, Two Arteries with Two Drug-eluting Intraluminal Devices, Percutaneous Approach (ICD-10-PCS; 2019-01-11)
PROC: B2111ZZ Fluoroscopy of Multiple Coronary Arteries using Low Osmolar Contrast (ICD-10-PCS; principal; 2019-01-13)
PROC: 4A023N7 Measurement of Cardiac Sampling and Pressure, Left Heart, Percutaneous Approach (ICD-10-PCS; 2019-01-13)
DX: I25.110 Atherosclerotic heart disease of native coronary artery with unstable angina pectoris (principal); I47.1 Supraventricular tachycardia; I10 Essential (primary) hypertension; E11.9 Type 2 diabetes mellitus without complications; E78.5 Hyperlipidemia, unspecified; E66.9 Obesity, unspecified; Z68.37 Body mass index [BMI] 37.0-37.9, adult; Z88.8 Allergy status to other drugs, medicaments and biological substances; Z79.899 Other long term (current) drug therapy; Z82.3 Family history of stroke; Z82.49 Family history of ischemic heart disease and other diseases of the circulatory system
CPT/HCPCS: 36415; 80053; 80061; 82962; 83036; 85027; 85520; 85610; 92928; 93454; 99152; 99153; C1725; C1769; C1874; C1887; C1892; J0360; J0583; J1644; J1815; J2250; J3010; J3490; J7030; Q9967; C1713; G0378

== ENCOUNTER → 2020-07-27 | Outpatient (CLI) | payer OTHER ==
[~2020-07-27] MED LIST: ASPI81TA50 PO; ATOR40TA59 PO; CARV3.1210 PO; LISI-130 PO; METF500T PO; TICA90TA PO
--- NOTE | 2020-07-27 12:12 | RAD ---
MR#: [id number] Date of Study: 07/27/2020 Ordering Physician: THAIS VILLAREAL, Referring Physician: ANAYA STEINER Tech: RT Alem (R) (N) APPROVED REPORT Test Type: Exercise Stress Nurse/Tech: WON Gillespie Test Indications: CAD, CHEST PAIN Cardiac History: STENT, HTN, CAD- SEE EMR Medications: SEE EMR Medical History: SEE EMR Resting ECG: SR Resting Heart Rate: 70 bpm Resting Blood Pressure: 138/95mmHg Pretest Chest Pain: No chest pain Nurse/Tech Notes S1,S2, LUNGS CTA, DENIED CP OR SOA. VSS. Consent: The procedure was explained to the patient in lay terms. Informed consent was witnessed. Grabiel eout was entered into [employer]. History and Stress Test performed by RT Consuelo (R) (N) Stress Symptoms PT TOLERATED TREADMILL TEST WITHOUT ANY C/O CP, TARGET HEART RATE GOAL REACHED. POST EXERCISE Reason for Termination: Reached target heart rate Target HR: 140 Max HR: 144 bpm 144% of Maximum Predicted HR: 140 bpm Exercise duration: 8:10 min:sec, 3 Stage Exercise capacity: 10METs Max Blood Pressure: 182/106mmHg Blood Pressure response to exercise: Normal blood pressure response during stress. Heart Rate response to exercise: WNL Chest Pain: No. Arrhythmia: No. ST Change: No. INTERPRETATION Stress EKG Conclusion: Baseline EKG showed sinus rhythm. Non-diagnostic changes at peak stress. No arrhythmias. Imaging Protocol IMAGE PROTOCOL: Rest Tc-99m/stress Tc-99m 1 day Rest: Stress: Viability: Radiopharm.Tc99m [id number] Sestamibi Dose10.4mCi 33mCi Duration 13min. 13min. Img Date 07/27/2020 07/27/2020 Inj-Img [id number]. 60min. Rest Admin Site:IV - Left HandAdministrator:RT Consuelo (Roque)(N) Stress Admin Site: IV - Left HandAdministrator: RT Consuelo (Roque)(N) STRESS DATA End Diast. Vol.96.0mlLVEDV index BSA41.0ml End Syst. Vol.12.0mlLVESV index BSA5.0ml Myocardial Stjv813.0gEject. Pxndzefw15.0% Stress Scores Regional WT1.00Summed WT10.00 Regional WM0.00Summed WM0.00 Study quality was good. Left Ventricular size was Normal at Rest and Stress. Lung uptake was . Left Ventricular ejection fraction is 84%. The rest and stress images show normal perfusion, normal contraction and thickening. LV Perf. Quant 17 Seg. SSS0.00 17 Seg. SRS0.00 17 Seg. SDS0.00 Stress Defect Extent (% LAD)0.00Rest Defect Extent (% LAD)0.00Rev. Defect Extent (% LAD)0.00 Stress Defect Extent (% LCX) 5.00Rest Defect Extent (% LCX)7.50Rev. Defect Extent (% LCX)0.00 Stress Defect Extent (% RCA)0.00Rest Defect Extent (% RCA)0.00Rev. Defect Extent (% RCA)0.00 Stress Defect Extent (% WINSTON)0.90Rest Defect Extent (% WINSTON)1.30Rev. Defect Extent (% WINSTON)0.00 Conclusion 1. Treadmill exercise cardioisotope stress test did not show any evidence of ischemia or infarct. 2. Normal left ventricular systolic function with ejection fraction calculated at 84%. 3. Low risk for cardiac events. Signed by : Marco Allen, Electronically Approved : 07/27/2020 12:12:14
== END ==
LOC: NM 08:47
PROVIDERS: ATTEND Internal Medicine Cardiovascular Disease
DX: R07.9 Chest pain, unspecified (principal); I25.10 Atherosclerotic heart disease of native coronary artery without angina pectoris; Z95.5 Presence of coronary angioplasty implant and graft
CPT/HCPCS: 78452; 93017; A9500

== ENCOUNTER → 2021-08-09 | Outpatient (CLI) | payer OTHER ==
--- NOTE | 2021-08-09 17:41 | RAD ---
EXAM: XR BILAT FEET 3 VIEWS 08/09/2021 9:24 AM CLINICAL INDICATION: Diabetic foot ulcer, right foot pain and second digit discomfort COMPARISON: None TECHNIQUE: AP, oblique, and lateral views of the right and left foot FINDINGS: No acute fracture or osseous destruction. There is suspected dorsal subluxation of the rig ht second proximal phalanx relative to the metatarsal. Bone mineralization is normal. Joint spaces ar e maintained bilaterally. There are large posterior calcaneal enthesophytes bilaterally. Mild soft ti ssue swelling of the right forefoot. IMPRESSION: 1. Suspected dorsal subluxation or dislocation of the right second MTP joint. 2. Mild soft tissue tissue swelling of the right forefoot. 3. No acute osseous abnormality of the left foot. Electronically signed by: Kera Shane MD (08/09/2021 5:39 PM) [id number]
== END ==
LOC: RAD 09:09
PROVIDERS: ATTEND Internal Medicine
DX: M77.31 Calcaneal spur, right foot (principal); M77.32 Calcaneal spur, left foot; M79.89 Other specified soft tissue disorders; E11.621 Type 2 diabetes mellitus with foot ulcer
CPT/HCPCS: 73630-50